=== PATIENT | male | born 1995 | race Caucasian/White ===

== ENCOUNTER 2018-10-24 18:13 | Emergency (ER) | payer OTHER ==
[~2018-10-24] VITALS: Ht 165.1 cm; Wt 29.5 kg
[2018-10-24 18:21] VITALS: Ht 165.1 cm; Wt 29.5 kg
[2018-10-24 20:17] VITALS: BP 122/68
== END 2018-10-24 20:17 | disposition home or self-care (01) ==
LOC: ED 18:13
DX: S80.812A Abrasion, left lower leg, initial encounter (principal); V49.9XXA Car occupant (driver) (passenger) injured in unspecified traffic accident, initial encounter; Y93.I9 Activity, other involving external motion; Y92.413 State road as the place of occurrence of the external cause; Y99.8 Other external cause status
CPT/HCPCS: 90715; J1885; Q0092